=== PATIENT | male | born 1960 | race American Indian/Alaskan Native ===

== ENCOUNTER 2017-01-26 08:37 | Outpatient (CLI) | payer BC ==
--- NOTE | 2017-01-26 09:58 | XRay Report ---
BILATERAL KNEE RADIOGRAPHS INDICATION: Chronic pain of both knees. COMPARISON: None similar. FINDINGS: AP, lateral and oblique bilateral knee radiographs demonstrate intact articulation and at least mild medial compartment narrowing. Mild degenerative spurring, more so involving the tibial spines. Left greater than right medial corners and patellar articular poles degenerative spurring as well. No suprapatellar effusion. CONCLUSION: Bilateral knee osteoarthrosis without acute bony abnormality, as described. Please correlate. Thank you for the opportunity to participate in this patient's care.
== END 2017-01-26 08:38 | disposition home or self-care (01) ==
LOC: SPVIMAG 08:37
PROVIDERS: ATTEND Internal Medicine
DX: M17.0 Bilateral primary osteoarthritis of knee (principal); G89.29 Other chronic pain